=== PATIENT | female | born 1995 | race Caucasian/White ===

== ENCOUNTER 2018-01-13 04:59 | Inpatient (IN) | payer OTHER ==
[2018-01-13 06:13] LABS: HEMATOCRIT 38.8 % (36.0-47.0); HEMOGLOBIN 13.2 g/dl (12.0-15.5); MEAN CORPUSCULAR HEMOGLOBIN 28.2 pg (27.0-33.0); MEAN CORPUSCULAR VOLUME 82.9 fl (80.0-96.0); PLATELET COUNT, AUTOMATED 243 10^3/uL (150-450); RED BLOOD COUNT 4.68 10^6/uL (4.00-5.40); RED CELL DISTRIBUTION WIDTH 12.6 % (11.5-14.5); WHITE BLOOD COUNT 7.7 10^3/uL (4.0-10.0)
[2018-01-13] MEDS: LR 1,000 ML IV ×3 (06:42→17:04)
[2018-01-13] MEDS: LACTATED RINGER'S 1000 ML IV (06:42)
[2018-01-13] MEDS ORDERED: ONDANSETRON 4MG/2ML VIAL (J2405) As Ordered ×2 (07:14→09:30)
[2018-01-13] MEDS ORDERED: OXYTOCIN INJ 10 UNITS/ML VIAL (J2590) As Ordered (07:14)
[2018-01-13] MEDS ORDERED: dexameTHASONE 4 MG/ML 1ML VIAL (J1100) As Ordered (07:14)
[2018-01-13] MEDS ORDERED: fentaNYL 100 MCG/2 ML INJECTION (J3010) As Ordered (07:15)
[2018-01-13] MEDS ORDERED: MORPHINE PRES-FREE INJ 10 MG/10 ML VIAL (J2274) As Ordered (07:15)
[2018-01-13] MEDS: BICITRA 30ML SOLN UDC PO (07:20)
[2018-01-13] MEDS ORDERED: PHENYLephrine HCL 500 MCG/5 ML (100MCG/ML) SYRINGE (J2370) As Ordered (08:04)
[2018-01-13] MEDS ORDERED: ePHEDrine SULFATE 25 MG/5 ML(5MG/ML) SYRINGE As Ordered (08:04)
[2018-01-13] MEDS ORDERED: MEASLES,MUMPS,RUBELLA VACCINE INJ (MMR-II) (90707) SC (09:00)
[2018-01-13] MEDS: PRENATAL VITAMINS CHEWABLE TABLET PO (09:00)
[2018-01-13] MEDS ORDERED: RHOGAM 300 MCG (1500 IU) INJ (J2790) IM (09:00)
[2018-01-13] MEDS: DOCUSATE SODIUM 100 MG CAP PO ×2 (09:00→20:19)
[2018-01-13] MEDS ORDERED: METOCLOPRAMIDE INJ 10MG/2ML VIAL (J2765) IV (09:00)
[2018-01-13] MEDS ORDERED: fentaNYL 100 MCG/2 ML INJECTION (J3010) IV (09:15)
[2018-01-13] MEDS ORDERED: NALBUPHINE HCL 10 MG/ML AMP (J2300) IV (09:15)
[2018-01-13] MEDS: ONDANSETRON 4MG/2ML VIAL (J2405) IV (09:32)
[2018-01-13 09:37] LABS: BEDSIDE GLUCOSE 163 MG/DL (70-105)
[2018-01-13 09:37] LABS: BEDSIDE GLUCOSE 151 MG/DL (70-105)
[2018-01-13] MEDS: KETOROLAC 30 MG/ML VIAL (J1885) IV ×2 (17:04→21:47)
[2018-01-14] MEDS: LR 1,000 ML IV (00:58)
[2018-01-14] MEDS: KETOROLAC 30 MG/ML VIAL (J1885) IV ×3 (03:43→08:29)
[2018-01-14 03:52] LABS: HEMATOCRIT 29.8 % (36.0-47.0); MEAN CORPUSCULAR HEMOGLOBIN 28.3 pg (27.0-33.0); MEAN CORPUSCULAR HGB CONC 33.2 g/dl (32.0-36.5); MEAN CORPUSCULAR VOLUME 85.1 fl (80.0-96.0); PLATELET COUNT, AUTOMATED 193 10^3/uL (150-450); RED CELL DISTRIBUTION WIDTH 12.7 % (11.5-14.5); WHITE BLOOD COUNT 7.9 10^3/uL (4.0-10.0)
[2018-01-14 03:56] LABS: HEMOGLOBIN 9.9 g/dl (12.0-15.5)
[2018-01-14 04:26] LABS: ANION GAP 9 MEQ/L (8-16); BLOOD UREA NITROGEN 9 MG/DL (7-18); CALCIUM LEVEL 7.9 MG/DL (8.5-10.1); CARBON DIOXIDE LEVEL 27 MEQ/L (21-32); CHLORIDE LEVEL 106 MEQ/L (98-107); CREATININE FOR GFR 0.54 MG/DL (0.55-1.30); GLOMERULAR FILTRATION RATE > 60.0 (>60); GLUCOSE, FASTING 185 MG/DL (70-100); POTASSIUM SERUM 4.2 MEQ/L (3.5-5.1); SODIUM LEVEL 142 MEQ/L (136-145)
[2018-01-14] MEDS: metFORMIN 850 MG TAB PO (06:11)
[2018-01-14 06:38] LABS: BEDSIDE GLUCOSE 157 MG/DL (70-105)
[2018-01-14] MEDS: DOCUSATE SODIUM 100 MG CAP PO ×2 (08:06→21:11)
[2018-01-14] MEDS: PRENATAL VITAMINS CHEWABLE TABLET PO (08:07)
[2018-01-14] MEDS: IBUPROFEN 800 MG TAB PO ×2 (10:30→16:46)
[2018-01-14 11:08] LABS: BEDSIDE GLUCOSE 137 MG/DL (70-105)
[2018-01-14] MEDS: PERCOCET 5MG/325MG TAB PO ×3 (11:57→21:12)
[2018-01-14] MEDS ORDERED: IBUPROFEN 800 MG TAB PO (17:00)
[2018-01-14 17:19] LABS: BEDSIDE GLUCOSE 158 MG/DL (70-105)
[2018-01-14 21:19] LABS: BEDSIDE GLUCOSE 200 MG/DL (70-105)
[2018-01-15] MEDS: PERCOCET 5MG/325MG TAB PO ×2 (05:36→10:00)
[2018-01-15 06:20] LABS: BEDSIDE GLUCOSE 139 MG/DL (70-105)
[2018-01-15] MEDS: DOCUSATE SODIUM 100 MG CAP PO (09:00)
[2018-01-15] MEDS: PRENATAL VITAMINS CHEWABLE TABLET PO (09:06)
[2018-01-15] MEDS: IBUPROFEN 800 MG TAB PO (09:07)
== END 2018-01-15 10:00 | disposition home or self-care (01) | DRG 765 ==
LOC: M LDI 04:59 → M OBS 10:16
PROVIDERS: Obstetrics & Gynecology
PROC: 10D00Z1 Extraction of Products of Conception, Low, Open Approach (ICD-10-PCS; principal; 2018-01-13 07:30)
DX: O34.211 Maternal care for low transverse scar from previous cesarean delivery (principal); O24.12 Pre-existing type 2 diabetes mellitus, in childbirth; Z3A.39 39 weeks gestation of pregnancy; E11.65 Type 2 diabetes mellitus with hyperglycemia; O36.63X0 Maternal care for excessive fetal growth, third trimester, not applicable or unspecified; Z37.0 Single live birth

== ENCOUNTER → 2019-03-19 | Outpatient (CLI) | payer OTHER ==
[~2019-03-19] MED LIST: ACET-683 PO; COLA100C5 PO; GLUC850T PO; IBUP-1114 PO; INSUH10VL; INSUH10VL SC; INSUN; INSUN SC; ONDA4TAB6 PO; OXYC1TAB23 PO; PREN200C PO; TUMS500C PO
--- NOTE | 2019-03-19 16:22 | ECGEPIP ---
[facility] Test Date: 2019-03-19 Pat Name: CATY MITCHELL Department: Room: - Gender: Female Bomb [employer]er: RODRIGO : 1995 Requested By: Leigh Lindsay Order Number: [id number] Reading MD: Sofy Kolb Measurements Intervals [place] Rate: 69 P: 30 WV: 165 QRS: 32 QRSD: 90 T: 37 QT: 369 QTc: 397 Interpretive Statements SINUS RHYTHM WITH SINUS ARRHYTHMIA IMPROVED SEPTAL T ABN C/W 10/24/17 Electronically Signed on 03-19-2019 16:22:06 EDT by Sofy Kolb
== END ==
LOC: M EKG 14:27
PROVIDERS: ATTEND Obstetrics & Gynecology
DX: O24.011 Pre-existing type 1 diabetes mellitus, in pregnancy, first trimester (principal); Z3A.10 10 weeks gestation of pregnancy; E10.8 Type 1 diabetes mellitus with unspecified complications

== ENCOUNTER 2019-03-22 17:28 | Emergency (ER) | payer OTHER ==
[~2019-03-22] VITALS: Ht 170.2 cm; Wt 83.1 kg
[~2019-03-22 17:28] MED LIST changes: -ACET-683 PO; -INSUH10VL; -INSUH10VL SC; -INSUN; -INSUN SC; -ONDA4TAB6 PO
[2019-03-22] MEDS ORDERED: INSUH10VL (17:38)
[2019-03-22] MEDS ORDERED: INSUN (17:38)
[2019-03-22] MEDS ORDERED: ACET-683 PO (17:39)
[2019-03-22] MEDS ORDERED: NS 1,000 ML IV ONE (17:45)
[2019-03-22] MEDS ORDERED: ONDANSETRON 4MG/2ML VIAL (J2405) IV ONE (17:45)
[2019-03-22] MEDS ORDERED: METOCLOPRAMIDE INJ 10MG/2ML VIAL (J2765) IV ONE (18:00)
[2019-03-22 18:18] LABS: BASO % 0.1 % (0.0-1.0); EOS % 0.4 % (0.0-3.0); HEMATOCRIT 41.4 % (36.0-47.0); HEMOGLOBIN 13.8 g/dl (12.0-15.5); MEAN CORPUSCULAR HGB CONC 33.3 g/dl (32.0-36.5); MONO # 0.3 10^3/uL (0.0-0.8); MONO % 2.8 % (0.0-5.0); NEUTROPHILS # 8.9 10^3/uL (1.5-8.5); NEUTROPHILS % 78.4 % (36.0-66.0); PLATELET COUNT, AUTOMATED 302 10^3/uL (150-450); WHITE BLOOD COUNT 11.3 10^3/uL (4.0-10.0)
[2019-03-22 18:45] LABS: BLOOD UREA NITROGEN 7 MG/DL (7-18); CALCIUM LEVEL 8.9 MG/DL (8.5-10.1); CARBON DIOXIDE LEVEL 22 MEQ/L (21-32); CHLORIDE LEVEL 105 MEQ/L (98-107); GLOMERULAR FILTRATION RATE > 60.0 (>60); GLUCOSE, FASTING 71 MG/DL (70-100); POTASSIUM SERUM 4.7 MEQ/L (3.5-5.1); SODIUM LEVEL 137 MEQ/L (136-145)
[2019-03-22 19:05] LABS: APPEARANCE, URINE CLEAR (CLEAR); BACTERIA, URINE AUTO 1+ (NEGATIVE); BILIRUBIN, URINE AUTO NEGATIVE (NEGATIVE); BLOOD, URINE BLOOD NEGATIVE (NEGATIVE); COLOR, URINE STRAW (YELLOW); GLUCOSE, URINE (UA) AUTO NEGATIVE (NEGATIVE); KETONE, URINE AUTO NEGATIVE (NEGATIVE); LEUKOCYTE ESTERASE, URINE AUTO NEGATIVE (NEGATIVE); NITRITE, URINE AUTO NEGATIVE (NEGATIVE); PROTEIN, URINE AUTO NEGATIVE (NEGATIVE); RBC, URINE AUTO 1 /HPF (0-3); SPECIFIC GRAVITY URINE AUTO 1.004 (1.002-1.035); SQUAMOUS EPITHELIAL CELL UR AU 1 /HPF (0-6); UROBILINOGEN, URINE AUTO 0.2 mg/dL (0.0-2.0); WBC, URINE AUTO 1 /HPF (0-3)
[2019-03-22] MEDS ORDERED: ACETAMINOPHEN TAB 650MG DOSE (2X325MG) PO ONE (19:45)
[2019-03-22 19:53] VITALS: BP 104/68
[2019-03-22] MEDS ORDERED: ONDA4TAB6 PO (20:12)
[2019-03-22] MEDS ORDERED: ONDANSETRON 4 MG ORAL DISINTEGRATING TAB (Q0162 PER 1MG) PO ONE (20:15)
== END 2019-03-22 20:23 | disposition home or self-care (01) ==
LOC: M ED 17:28
DX: O24.111 Pre-existing type 2 diabetes mellitus, in pregnancy, first trimester (principal); E11.649 Type 2 diabetes mellitus with hypoglycemia without coma; Z3A.12 12 weeks gestation of pregnancy; Z79.4 Long term (current) use of insulin
CPT/HCPCS: 36415; 80048; 81001; 85025; 96374; 99284; J2765; Q0162

== ENCOUNTER 2019-08-04 15:45 | Outpatient (CLI) | payer OTHER ==
[~2019-08-04] VITALS: Ht 154.9 cm; Wt 99.5 kg
[~2019-08-04 15:45] MED LIST changes: +ACET-683 PO; +INSUH10VL; +INSUN; +ONDA4TAB6 PO
[2019-08-04 16:32] VITALS: BP 101/59
[2019-08-04] MEDS ORDERED: INSUN SC (17:57)
[2019-08-04] MEDS ORDERED: INSUH10VL SC (17:57)
[2019-08-04] MEDS ORDERED: NS 1,000 ML IV SCH (18:30)
[2019-08-04] MEDS ORDERED: NS 1,000 ML IV ONE (18:30)
[2019-08-04 18:53] LABS: HEMATOCRIT 41.5 % (36.0-47.0); HEMOGLOBIN 13.9 g/dl (12.0-15.5); MEAN CORPUSCULAR HEMOGLOBIN 30.5 pg (27.0-33.0); MEAN CORPUSCULAR HGB CONC 33.5 g/dl (32.0-36.5); MEAN CORPUSCULAR VOLUME 91.2 fl (80.0-96.0); PLATELET COUNT, AUTOMATED 257 10^3/uL (150-450); RED BLOOD COUNT 4.55 10^6/uL (4.00-5.40); WHITE BLOOD COUNT 11.7 10^3/uL (4.0-10.0)
[2019-08-04 19:10] LABS: HEMOGLOBIN A1c 7.7 %; POTASSIUM SERUM 3.4 MEQ/L (3.5-5.1)
--- NOTE | 2019-08-04 19:44 | HPE ---
DATE OF ADMISSION: 08/04/2019 This lady is being transferred to [place] for diabetic control. This patient is a 23-year-old 5, para 2, abortio 2, history of type 1 diabetes, not controlled. PAST HISTORY: In 2015 at 36 weeks, had a primary section for chorioamnionitis. She had induction of labor for three days, was an AGDM2, 7 pounds, 9 ounces, no medication, female. In 2018 at 39 weeks, had a repeat section for 10 pounds, 1 ounce, again AGDM2 with no medications, she questionably was taking metformin, delivered a live infant, 10 pounds, 1 ounce. Her glucose tolerance test (GTT) was 139 and her three-hour GTT fasting was 97, one-hour was 181, 2-hour was 161, and three-hour was 92. In 2013, she had a non-documented spontaneous . In 2014, she had a non-documented spontaneous . Her risk factors are she has had two sections and uncontrolled diabetes. LABORATORY DATA: O+, HIV negative, hepatitis negative, RPR negative, rubella immune. Varicella immune. Pap normal. Urine negative. Gonorrhea and Chlamydia are negative. One-hour glucose originally was 92. She declined the three-hour GTT. She has had one A1c which was 5.9. At present, her blood pressure is 101/59, respirations are 16, pulse is 114 and temperature is 98.4. Urine is 10.10, pH 8 and 2+ ketones. On examination, no acute distress. Symphysis fundus height is 32. heart rate is 144. Category 1 strip with moderate accelerations, baseline variability was normal. No decelerations. She has been basically uncontrolled for 2-3 months. Presently, she brings in her sugars and looking at her sugars lunch and dinner, she is ranging from 192-167 to 212-140 to 189-188. She is presently supposedly taking in the morning at breakfast NovoLog 25 units and Novolin NPH 40 units. She then four hours later took a blood sugar and it was 129. She did not eat lunch or supper and she takes NovoLog at dinner of 24 units. Her blood sugar on admission here was 986. She does take a bedtime Novolin of 24 units. She intermittently does her blood sugars. She does forget to take her medication and she also does not carry her glucose monitoring with her. We have had multiple evaluations, readjustments to her insulin, and we have not been able to control her blood sugars on any of these regimes. She had increased to a total of 104 units of insulin totally and we have continually tried to bring the insulin levels up starting well before 07/07/2019. We have spoken with Dr. Abreu who kindly agreed to take her for diabetic control. She was previously seen at [place], and when she was actively taking her insulin, she did decrease her hemoglobin to 5.9. She admits to not taking her insulin on time, not checking her blood sugars, not eating appropriately. Despite multiple counseling events and changing her insulin levels, we have not been able to get her under control. She had a 28-week ultrasound which was normal. The estimated weight is the 65th percentile. Her anatomy scan was normal. The baby's echocardiogram was normal. She did speak to the dietitian, although in quizzing her regarding diet, she just eats as what she indicates she would like. She has had an EKG which was normal. We initially had started her on 16 units of Novolin in the morning, 12 units at bedtime, the NovoLog 8 units in the morning, 6 units at dinner. However, as you can see, we have had to gradually ratchet up the insulin with minimal success. She was to start testing at 28 weeks and basically two times a week. We impressed upon her that she needed to have blood sugar control of less than 95 fasting and two-hour of 120 and she has never met that target. Enclosed will be her laboratory results which includes her complete blood count (CBC), electrolytes and her recent most recent A1c and random sugar. In summary, we have a 32-week gestation, type 1 diabetic who is not under good control.
== END 2019-08-04 21:00 | disposition other institution (70) ==
LOC: M LDO 15:45
PROVIDERS: ATTEND Obstetrics & Gynecology
DX: O24.013 Pre-existing type 1 diabetes mellitus, in pregnancy, third trimester (principal); Z3A.32 32 weeks gestation of pregnancy
CPT/HCPCS: 36415; 59025; 80051; 82947; 83036; 85027; G0378; G0463

== ENCOUNTER 2019-09-20 17:19 | Emergency (ER) | payer OTHER ==
[~2019-09-20] VITALS: Ht 154.9 cm; Wt 95.8 kg
[~2019-09-20 17:19] MED LIST changes: +INSUH10VL SC; +INSUN SC
[2019-09-20] MEDS ORDERED: IBUP-1022 PO (18:17)
[2019-09-20] MEDS ORDERED: DOK1CAP7 PO (18:17)
[2019-09-20] MEDS ORDERED: INSUN SC ×2 (18:53)
[2019-09-20] MEDS ORDERED: NOVOINJ SC ×2 (18:53)
[2019-09-20 19:14] LABS: BASO % 0.4 % (0.0-1.0); EOS # 0.2 10^3/uL (0.0-0.5); EOS % 2.2 % (0.0-3.0); HEMATOCRIT 42.6 % (36.0-47.0); HEMOGLOBIN 13.8 g/dl (12.0-15.5); LYMPH # 2.9 10^3/uL (1.5-5.0); MEAN CORPUSCULAR HEMOGLOBIN 29.9 pg (27.0-33.0); MEAN CORPUSCULAR HGB CONC 32.4 g/dl (32.0-36.5); MEAN CORPUSCULAR VOLUME 92.2 fl (80.0-96.0); MONO # 0.3 10^3/uL (0.0-0.8); MONO % 3.5 % (0.0-5.0); NEUTROPHILS # 5.1 10^3/uL (1.5-8.5); NEUTROPHILS % 59.4 % (36.0-66.0); PLATELET COUNT, AUTOMATED 403 10^3/uL (150-450); RED BLOOD COUNT 4.62 10^6/uL (4.00-5.40); WHITE BLOOD COUNT 8.5 10^3/uL (4.0-10.0)
[2019-09-20] MEDS ORDERED: MUPI2OI TOP (19:49)
[2019-09-20 19:57] VITALS: BP 115/66
== END 2019-09-20 20:10 | disposition home or self-care (01) ==
LOC: M ED 17:19
DX: G89.18 Other acute postprocedural pain (principal); L08.9 Local infection of the skin and subcutaneous tissue, unspecified; L76.32 Postprocedural hematoma of skin and subcutaneous tissue following other procedure; E11.9 Type 2 diabetes mellitus without complications; Z79.4 Long term (current) use of insulin

== ENCOUNTER → 2020-08-23 | Outpatient (REF) | payer OTHER ==
[~2020-08-23] MED LIST changes: +DOK1CAP7 PO; +IBUP-1022 PO; +MUPI2OI TOP; +NOVOINJ SC
[2020-08-23 18:10] LABS: BACTERIA, URINE AUTO NEGATIVE (NEGATIVE); RBC, URINE AUTO 0 /HPF (0-3); SQUAMOUS EPITHELIAL CELL UR AU 1 /HPF (0-6); WBC, URINE AUTO 0 /HPF (0-3)
== END ==
LOC: M SMT 17:04
PROVIDERS: ATTEND Specialist
DX: N39.46 Mixed incontinence (principal)
CPT/HCPCS: 51798; 81015; 87086; G0463